=== PATIENT | female | born 1960 | race Caucasian/White ===

== ENCOUNTER 2016-10-05 19:47 | Emergency (ER) | payer OTHER ==
[~2016-10-05] VITALS: Ht 160 cm; Wt 56.9 kg
[~2016-10-05 19:47] MED LIST: ALPR.25 PO; ANAS1 PO; CLON1 PO; COZA50TA PO; LANSO15 PO; LEXA5TAB PO; NEXI20CA PO; POTA-267 PO; ZITH500T PO
[2016-10-05 20:00] VITALS: BP 128/89; PULSE 96; RESP 16; TEMP 98.2; O2SAT 98
[2016-10-05] MEDS ORDERED: CLON1TAB PO (20:13)
[2016-10-05] MEDS ORDERED: NEXI20CA PO (20:13)
[2016-10-05] MEDS ORDERED: LEXA5TAB PO (20:13)
[2016-10-05] MEDS ORDERED: COZA50TA PO (20:13)
--- NOTE | 2016-10-05 20:28 | PD ---
HPI Chief Complaint: Laceration/Skin Injury Time Seen by Provider: 20:14 Travel History International Travel<30 days: No Contact w/Intl Traveler<30days: No Traveled to known affect area: No History of Present Illness HPI 55yo F with PMH of breast CA presents to the ED with c/o left foot laceration. Pt was in fishing yesterday and stepped on a clam at 3pm yesterday and had a laceration. Pt denies any fever, chest pain, sob, n/v, abdominal pain, weakness or numbness. PFSH Past Medical History Blood Disorders: Yes Anxiety: Yes Depression: Yes Cancer: Yes (RIGHT BREAST CA 2005) Chemotherapy: Yes (2005) Diminished Hearing: No GERD: Yes Hypertension: Yes Musculoskeletal: Yes (CERVICAL DISC BULDGING.) Respiratory: Yes (COPD, EMPHAZEMA) Immunizations Current: Yes Radiation Therapy: Yes (2006) ?: Not Menopausal: Yes Tubal Ligation: Yes (1988) Past Surgical History Gynecologic Surgery: Yes (OOPHERECTOMY BIL) Hysterectomy: Yes Mastectomy: Yes (right breast cancer 2005) Thoracic Surgery: Yes (BREAST AUGMENTATION 1994; RIGHT BREAST MASTECTOMY 08/2005 ) Other Surgery: Yes (RT BREAST MASTECTOMY 08/11,LEFT BREAST AUGMENTATION/ RECONSTUCTION 2006 ) Social History Alcohol Use: Yes (DAILY, [id number] drinks) Tobacco Use: Yes (1 TO 1/2 PPD) Substance Use: No Allergies-Medications (Allergen,Severity, Reaction): Coded Allergies: No Known Allergies (Verified , 10/05/16) Reported Meds & Prescriptions Reported Meds & Active Scripts Active Cipro (Ciprofloxacin HCl) 500 Mg Tab 500 Mg PO BID 7 Days Reported Nexium (Esomeprazole DR) 20 Mg Capdr 20 Mg PO DAILY Clonazepam 1 Mg Tab 1 Mg PO BID Lexapro (Escitalopram Oxalate) 5 Mg Tab 5 Mg PO DAILY Cozaar (Losartan Potassium) 50 Mg Tab 50 Mg PO DAILY Review of Systems Except as stated in HPI: all other systems reviewed are Neg Physical Exam Narrative GENERAL: 55yo F not in distress. SKIN: Focused skin assessment warm/dry. CARDIOVASCULAR: Regular rate and rhythm. No murmur appreciated. RESPIRATORY: No accessory muscle use. Clear to auscultation. Breath sounds equal bilaterally. GASTROINTESTINAL: Abdomen soft, non-tender, nondistended. MUSCULOSKELETAL: Left foot: +1.5cm laceration on plantar aspect of 1st MCP. Not bleeding. DP 2+. Sensation intact. Muscle strength intact. NEUROLOGICAL: Awake and alert. No obvious cranial nerve deficits. Motor grossly within normal limits. Normal speech. PSYCHIATRIC: Appropriate mood and affect; insight and judgment normal. Data Data Last Documented VS Vital Signs Date Time Temp Pulse Resp B/P Pulse Ox O2 Delivery O2 Flow Rate FiO2 10/05/16 20:39 98.2 96 16 128/89 98 Orders Acetaminophen (Tylenol) (10/05/16 20:30) [facility] Medical Decision Making Medical Screen Exam Complete: Yes Emergency Medical Condition: Yes Differential Diagnosis Laceration Narrative Course 55yo F presents to the ED 29 hours after sustaining a laceration on bottom of left toe after stepping on a clam. Pt is no longer bleeding and is up to date on tetanus. Wound irrigated well and I was able to see the bottom of the wound and it was superficial. No xray needed as there was no puncture wound. I closed the laceration with steri strips. Pt given acetaminophen. Return precautions given. Procedures Procedure Narrative LACERATION LOCATION: Plantar left 1st metatarsal LENGTH: 1.5 NUMBER OF STITCHES/ДМИТРИЙ: Steri strips REPAIR: TThe wound was copiously irrigated and explored without evidence of foreign body, tendon injury or neurovascular injury. The wound was closed using Steri strips. This was a single layer repair. The patient was advised to keep the dressing clean and dry. Patient tolerated the procedure well. Diagnosis Primary Impression: Laceration of foot Qualified Code: S91.312A - Laceration of foot, left, initial encounter Patient Instructions: General Instructions Departure Forms: Tests/Procedures Additional Instructions: Please follow up with your PMD in 2 days for wound check. Return to the ED if symptoms worsen. Med/Other Pt SpecificInfo: Prescription(s) given Scripts Ciprofloxacin (Cipro)500 Mg Uip129 Mg PO BID 7 Days Ref 0 Prov:CoronaJeanie DO 10/05/16 Disposition: 01 DISCHARGE HOME Condition: Stable Jeanie Corona DO Oct 05, 2016 20:28
[2016-10-05] MEDS ORDERED: ACETAMINOPHEN 325 MG TAB PO ONE (20:30)
[2016-10-05 20:39] VITALS: BP 128/89; PULSE 96; RESP 16; TEMP 98.2; O2SAT 98
[2016-10-05] MEDS ORDERED: CIPR-9 PO (20:44)
== END 2016-10-05 21:03 | disposition home or self-care (01) ==
LOC: PHED 19:47
DX: S91.312A Laceration without foreign body, left foot, initial encounter (principal); I10 Essential (primary) hypertension; F17.210 Nicotine dependence, cigarettes, uncomplicated; F10.10 Alcohol abuse, uncomplicated; W22.09XA Striking against other stationary object, initial encounter; Y93.01 Activity, walking, marching and hiking; Y92.89 Other specified places as the place of occurrence of the external cause
CPT/HCPCS: 99282

== ENCOUNTER 2017-11-14 22:56 | Emergency (ER) | payer OTHER ==
[~2017-11-14 22:56] MED LIST changes: -ALPR.25 PO; -ANAS1 PO; +CIPR-9 PO; -CLON1 PO; +CLON1TAB PO; -LANSO15 PO; -POTA-267 PO; -ZITH500T PO
[2017-11-14 23:06] VITALS: BP 140/92; PULSE 101; RESP 18; TEMP 98.3; O2SAT 96
[2017-11-14] MEDS ORDERED: CEFD300C PO (23:45)
[2017-11-14] MEDS ORDERED: PRED10 PO (23:45)
[2017-11-14] MEDS ORDERED: NICOTINE 14 MG/24 HR PATCH T-DERMAL ONE (23:45)
[2017-11-14] MEDS ORDERED: MELO15TA20 PO (23:45)
--- NOTE | 2017-11-14 23:51 | PD ---
HPI Chief Complaint: Psychiatric Symptoms Time Seen by Provider: 23:40 Travel History International Travel<30 days: No Contact w/Intl Traveler<30days: No Traveled to known affect area: No History of Present Illness HPI This is a 56-year-old female who presents under a Valle act initiated by police department. According to paperwork, "subject ingested 20-30 meloxicam pills. Subjects family attempted to bring her to [facility] and she fled the scene. Subject attempted to flee through [place] before contact with law enforcement." The patient reports that at approximately 6 PM this evening she drank 2 shots of fireball and took 2-3 meloxicam tablets. She denies taking 20 -30 meloxicam pills but she is verbally aggressive and does not appear to be very inclined to be truthful during this examination. She denies any suicidal thoughts or homicidal thoughts. She denies any other ingestions. Her primary complaint at this time is of nicotine withdrawal and she was requesting to smoke a cigarette. I called her Dwayne to obtain additional information. Her reports that they have been for the past 6 months. She called him today saying that she took several Klonopin tablets and several shots of fireball whiskey. He met her and brought her to the hospital however she escaped. He then saw her in a [place] and called police who placed her under Valle act. He reports that there was no Klonopin or Klonopin bottles at home but he believes that she may have taken more than her usual dosage of meloxicam but there is no way that she can estimate how much. He reports that she told him tonight that she wants to try to kill herself when she was a teenager. He also reports that she was diagnosed with COPD 10 days ago and believes that she may have been feeling sad about that. No other complaints at this time. PFSH Past Medical History Blood Disorders: Yes Anxiety: Yes Depression: Yes Cancer: Yes (RIGHT BREAST CA 2005) Chemotherapy: Yes (2005) Diminished Hearing: No GERD: Yes Hypertension: Yes Musculoskeletal: Yes (CERVICAL DISC BULDGING.) Respiratory: Yes (COPD, EMPHAZEMA) Immunizations Current: Yes Radiation Therapy: Yes (2006) Menopausal: Yes Tubal Ligation: Yes (1988) Past Surgical History Gynecologic Surgery: Yes (OOPHERECTOMY BILAT) Hysterectomy: Yes Mastectomy: Yes (right breast cancer 2005) Thoracic Surgery: Yes (BREAST AUGMENTATION 1994; RIGHT BREAST MASTECTOMY 08/2005 ) Other Surgery: Yes (RT BREAST MASTECTOMY 08/11,LEFT BREAST AUGMENTATION/ RECONSTUCTION 2006 ) Social History Alcohol Use: Yes (DAILY, [id number] drinks) Tobacco Use: Yes (1 TO 1/2 PPD) Substance Use: No Allergies-Medications (Allergen,Severity, Reaction): Coded Allergies: No Known Allergies (Verified Adverse Reaction, Unknown, 11/15/17) Reported Meds & Prescriptions Reported Meds & Active Scripts Active Cipro (Ciprofloxacin HCl) 500 Mg Tab 500 Mg PO BID 7 Days Reported Cefdinir 300 Mg Cap 300 Mg PO BID Prednisone 10 Mg Tab 10 Mg PO DAILY Meloxicam 15 Mg Tab 15 Mg PO DAILY Nexium (Esomeprazole DR) 20 Mg Capdr 20 Mg PO DAILY Clonazepam 1 Mg Tab 1 Mg PO BID Lexapro (Escitalopram Oxalate) 5 Mg Tab 5 Mg PO DAILY Cozaar (Losartan Potassium) 50 Mg Tab 50 Mg PO DAILY Review of Systems Except as stated in HPI: all other systems reviewed are Neg Physical Exam Narrative GENERAL: Well-developed well-nourished female who is tearful and verbally abusive. SKIN: Warm and dry. HEAD: Atraumatic. Normocephalic. EYES: Pupils equal and round. No scleral icterus. No injection or drainage. ENT: No nasal bleeding or discharge. Mucous membranes pink and moist. NECK: Trachea midline. No JVD. CARDIOVASCULAR: Regular rate and rhythm. No murmur appreciated. RESPIRATORY: No accessory muscle use. Clear to auscultation. Breath sounds equal bilaterally. GASTROINTESTINAL: Abdomen soft, non-tender, nondistended. Hepatic and splenic margins not palpable. MUSCULOSKELETAL: No obvious deformities. No clubbing. No cyanosis. No edema. NEUROLOGICAL: Awake and alert. No obvious cranial nerve deficits. Motor grossly within normal limits. Normal speech. PSYCHIATRIC: Depressed, tearful, anxious. Data Data Last Documented VS Vital Signs Date Time Temp Pulse Resp B/P (MAP) Pulse Ox O2 Delivery O2 Flow Rate FiO2 11/14/17 23:06 98.3 101 18 140/92 (108) 96 Orders Orders ^ Sitter (11/14/17 23:40) Nicotine 14 Mg Patch.24 Hr (Habitrol 14 (11/14/17 23:45) Complete Blood Count With Diff (11/14/17 23:40) Comprehensive Metabolic Panel (11/14/17 23:40) Thyroid Stimulating Hormone (11/14/17 23:40) Electrocardiogram (11/14/17 23:40) Oximetry (11/14/17 23:40) Ecg Monitoring (11/14/17 23:40) Psych Screen (11/14/17 23:40) Drug Screen, Random Urine (11/14/17 23:40) Alcohol (Ethanol) (11/14/17 23:40) Salicylates (Aspirin) (11/14/17 23:40) Tylenol (Acetaminophen) (11/14/17 23:40) Labs Laboratory Tests Test 11/14/17 23:55 White Blood Count 9.3 TH/MM3 Red Blood Count 5.10 MIL/MM3 Hemoglobin 17.4 GM/DL Hematocrit 49.8 % Mean Corpuscular Volume 97.7 FL Mean Corpuscular Hemoglobin 34.2 PG Mean Corpuscular Hemoglobin Concent 34.9 % Red Cell Distribution Width 13.2 % Platelet Count 232 TH/MM3 Mean Platelet Volume 8.0 FL CBC Comment AUTO DIFF Differential Total Cells Counted 100 Neutrophils % (Manual) 89 % Band Neutrophils % 6 % Lymphocytes % 5 % Neutrophils # (Manual) 8.8 TH/MM3 Differential Comment FINAL DIFF MANUAL Toxic Granulation 2+ Platelet Estimate NORMAL Platelet Morphology Comment NORMAL Blood Urea Nitrogen 11 MG/DL Creatinine 0.86 MG/DL Random Glucose 106 MG/DL Total Protein 7.4 GM/DL Albumin 3.8 GM/DL Calcium Level 9.0 MG/DL Alkaline Phosphatase 141 U/L Aspartate Amino Transf (AST/SGOT) 41 U/L Alanine Aminotransferase (ALT/SGPT) 88 U/L Total Bilirubin 0.5 MG/DL Sodium Level 141 MEQ/L Potassium Level 3.8 MEQ/L Chloride Level 103 MEQ/L Carbon Dioxide Level 26.1 MEQ/L Anion Gap 12 MEQ/L Estimat Glomerular Filtration Rate 68 ML/MIN Thyroid Stimulating Hormone 3rd Gen 0.352 uIU/ML Salicylates Level 4.7 MG/DL Acetaminophen Level LESS THAN 2.0 MCG/ML Ethyl Alcohol Level 166 MG/DL MDM Medical Decision Making Medical Screen Exam Complete: Yes Emergency Medical Condition: Yes Medical Record Reviewed: Yes Differential Diagnosis Major depressive disorder, substance-induced mood disorder, acute psychosis, adjustment reaction Narrative Course 56-year-old female presents under Valle act for psychiatric evaluation. Mental health screening discussed with the patient. Psychiatric screen ordered. Patient was placed on ECG monitoring pulse oximetry. 12 EKG was obtained revealing sinus tachycardia, rate 106, left bundle branch block. CBC reveals hemoglobin of 17.4 otherwise unremarkable, CMP reveals AST 48 ALT 88, TSH 0.352 , Tylenol and salicylates within normal limits, alcohol levels 166. The patient is medically cleared for psychiatric disposition. Diagnosis Primary Impression: Medical clearance for psychiatric admission Oscar Vasquez Nov 14, 2017 23:51
[2017-11-15 00:26] LABS: HEMATOCRIT 49.8 % (35.0-46.0); HEMOGLOBIN 17.4 GM/DL (11.6-15.3); MEAN CELL VOLUME 97.7 FL (80.0-100.0); MEAN CORPUSCULAR HEMOGLOBIN 34.2 PG (27.0-34.0); MEAN CORPUSCULAR HGB CONC 34.9 % (32.0-36.0); PLATELET COUNT 232 TH/MM3 (150-450); RED CELL DISTRIBUTION WIDTH 13.2 % (11.6-17.2); WHITE BLOOD COUNT 9.3 TH/MM3 (4.0-11.0)
[2017-11-15 00:33] LABS: ALBUMIN 3.8 GM/DL (3.4-5.0); ALT (GPT) 88 U/L (10-53); AST (GOT) 41 U/L (15-37); BICARBONATE 26.1 MEQ/L (21.0-32.0); BLOOD UREA NITROGEN 11 MG/DL (7-18); CHLORIDE 103 MEQ/L (98-107); CREATININE 0.86 MG/DL (0.50-1.00); GLOMERULAR FILTRATION RATE 68 ML/MIN (>89); GLUCOSE,RANDOM 106 MG/DL (74-106); SODIUM (NA) 141 MEQ/L (136-145)
[2017-11-15 00:42] LABS: ALKALINE PHOSPHATASE 141 U/L (45-117); TOTAL BILIRUBIN ADULT 0.5 MG/DL (0.2-1.0); TOTAL PROTEIN 7.4 GM/DL (6.4-8.2)
[2017-11-15 00:51] LABS: ACETAMINOPHEN LESS THAN 2.0 MCG/ML (10.0-30.0)
[2017-11-15 01:08] LABS: BANDS 6 % (0-6); LYMPHOCYTES 5 % (9-44); NEUTROPHIL # MANUAL DIFF 8.8 TH/MM3 (1.8-7.7); POLYS (SEG NEUTROPHILS) 89 % (16-70)
[2017-11-15 01:10] LABS: TOXIC GRANULATION 2+ (NORMAL)
[2017-11-15] MEDS ORDERED: ALUMINUM/MAGNESIUM/SIMETH 30 ML CUP PO ONE (03:45)
[2017-11-15] MEDS ORDERED: ONDANSETRON ODT 4 MG TAB PO ONE (03:45)
[2017-11-15] MEDS ORDERED: FAMOTIDINE 20 MG TAB PO ONE (03:45)
[2017-11-15] MEDS ORDERED: LIDOCAINE VISCOUS 2% SOLN 15 ML UDC PO ONE (03:45)
[2017-11-15 05:59] VITALS: BP 125/80; PULSE 85; RESP 16; O2SAT 98
[2017-11-15 12:00] VITALS: BP 156/89; PULSE 78; RESP 18; O2SAT 96
[2017-11-15] MEDS ORDERED: MELOXICAM 15 MG TAB PO ONE (13:30)
[2017-11-15] MEDS ORDERED: predniSONE 10 MG TAB PO SCH (13:30)
[2017-11-15] MEDS ORDERED: ESCITALOPRAM OXALATE 10 MG TAB PO SCH (13:30)
[2017-11-15] MEDS ORDERED: clonazePAM 1 MG TAB PO SCH (13:30)
--- NOTE | 2017-11-15 14:33 | EKG ---
Date Performed: 11/14/2017 Time Performed: 23:58:34 PTAGE: 56 years EKG: SINUS TACHYCARDIA WITH SHORT MN INTERVAL LEFT BUNDLE BRANCH BLOCK ABNORMAL ECG PREVIOUS TRACING : 10/24/2010 10.26 COMPARED WITH PREVIOUS EKG SINUS TACHYCARDIA IS NEW DOCTOR: Rolando Humphrey Interpretating Date/Time 11/15/2017 14:31:36
--- NOTE | 2017-11-15 15:20 | PD ---
Physical Exam Time Seen by Provider: 15:19 Narrative Please refer to previous providers documentation for details surrounding the patient's current visit. Data Data Last Documented VS Vital Signs Date Time Temp Pulse Resp B/P (MAP) Pulse Ox O2 Delivery O2 Flow Rate FiO2 11/15/17 12:00 78 18 156/89 (111) 96 Room Air 11/14/17 23:06 98.3 Orders Orders ^ Sitter (11/14/17 23:40) Nicotine 14 Mg Patch.24 Hr (Habitrol 14 (11/14/17 23:45) Complete Blood Count With Diff (11/14/17 23:40) Comprehensive Metabolic Panel (11/14/17 23:40) Thyroid Stimulating Hormone (11/14/17 23:40) Electrocardiogram (11/14/17 23:40) Oximetry (11/14/17 23:40) Ecg Monitoring (11/14/17 23:40) Psych Screen (11/14/17 23:40) Drug Screen, Random Urine (11/14/17 23:40) Alcohol (Ethanol) (11/14/17 23:40) Salicylates (Aspirin) (11/14/17 23:40) Tylenol (Acetaminophen) (11/14/17 23:40) Famotidine (Pepcid) (11/15/17 03:45) Al-Mag Hy-Si 40-40-4 Mg/Ml Liq (Mag-Al P (11/15/17 03:45) Lidocaine 2% Viscous (Xylocaine 2% Visco (11/15/17 03:45) Ondansetron Odt (Zofran Odt) (11/15/17 03:45) Diet Regular Basic (11/15/17 Breakfast) Diet Regular Basic (11/15/17 Lunch) Meloxicam (Mobic) (11/15/17 13:30) Clonazepam (Klonopin) (11/15/17 13:30) Escitalopram (Lexapro) (11/15/17 13:30) Prednisone (Deltasone) (11/15/17 13:30) Ed Discharge Order (11/15/17 15:18) Labs Laboratory Tests Test 11/14/17 23:55 White Blood Count 9.3 TH/MM3 Red Blood Count 5.10 MIL/MM3 Hemoglobin 17.4 GM/DL Hematocrit 49.8 % Mean Corpuscular Volume 97.7 FL Mean Corpuscular Hemoglobin 34.2 PG Mean Corpuscular Hemoglobin Concent 34.9 % Red Cell Distribution Width 13.2 % Platelet Count 232 TH/MM3 Mean Platelet Volume 8.0 FL CBC Comment AUTO DIFF Differential Total Cells Counted 100 Neutrophils % (Manual) 89 % Band Neutrophils % 6 % Lymphocytes % 5 % Neutrophils # (Manual) 8.8 TH/MM3 Differential Comment FINAL DIFF MANUAL Toxic Granulation 2+ Platelet Estimate NORMAL Platelet Morphology Comment NORMAL Blood Urea Nitrogen 11 MG/DL Creatinine 0.86 MG/DL Random Glucose 106 MG/DL Total Protein 7.4 GM/DL Albumin 3.8 GM/DL Calcium Level 9.0 MG/DL Alkaline Phosphatase 141 U/L Aspartate Amino Transf (AST/SGOT) 41 U/L Alanine Aminotransferase (ALT/SGPT) 88 U/L Total Bilirubin 0.5 MG/DL Sodium Level 141 MEQ/L Potassium Level 3.8 MEQ/L Chloride Level 103 MEQ/L Carbon Dioxide Level 26.1 MEQ/L Anion Gap 12 MEQ/L Estimat Glomerular Filtration Rate 68 ML/MIN Thyroid Stimulating Hormone 3rd Gen 0.352 uIU/ML Salicylates Level 4.7 MG/DL Acetaminophen Level LESS THAN 2.0 MCG/ML Ethyl Alcohol Level 166 MG/DL MDM Medical Record Reviewed: Yes Supervised Visit with SANJUANA: No Narrative Course Patient was medically clear, evaluated by psychiatry and Valle act has been lifted. With no further medical needs, patient will be discharged at this time. Diagnosis Primary Impression: Medical clearance for psychiatric admission Additional Impression: Adjustment disorder Qualified Codes: F43.25 - Adjustment disorder with mixed disturbance of emotions and conduct Disposition: 01 DISCHARGE HOME Condition: Stable Ale Gross Nov 15, 2017 15:20
[2017-11-15 15:30] VITALS: BP 153/71; PULSE 79; RESP 19; O2SAT 97
--- NOTE | 2017-11-15 15:47 | PD ---
History of Present Illness Chief Complaint: Psychiatric Symptoms Time Seen by Provider: 15:00 Travel History International Travel<30 Days: No Contact w/Intl Traveler<30days: No Known affected area: No Legal Status Legal Status: Valle Act Valle Act Signed By: Tamie Magallanes History of Present Illness: Patient is 56 y/o female brought to the Emergency Department under a Valle Act by the [facility] Department. The Valle Act states, " subject ingested 2-30 Meloxicam pills. Subject's family attempted to bring her to [place] and she fled the scene. Subject attempted to flee through a [place] before contact with law enforcement." Patient states that in 2005 she had a right mastectomy due to breast cancer. 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 She states she will be typing and after these periods have not captured what was said. She is very worried that the cancer has spread. She was followed by Dr. Beauchamp through [facility], but her health insurance changed and she is now seeing Dr. Jack . Dr. Jack will not agree to a PET scan and she continues to worry about her health. She thought that if she could be admitted to the ED that a PET scan would be ordered. Chart reviewed and discussed with nurse. Patient in a hospital gown in Room D- 42 in the Emergency Department. Alert and oriented x 4. Fund of knowledge good. Insight and judgement good. Patient states that the vertigo cause her to see white stars, but the are temporary as soon as she stablizes her balance. Attention and concentration is good. Recent and remote recall intact. Endorses no suicidal or homicidal ideations. Patient has been treated most of her life for depression and take Lexapro and an " anxiety pill." She states that her last Oncology appointment was two years ago. Patient advised to follow up with her PCP and determine if she needs further intervention for medical concerns. Patient is at low risk for self harm or harm of others. She endorses no suicidal ideations. She states " I have a good life, I just am worried about the cancer spreading." Will lift the Valle Act. Patient will follow up with her medical physicians. Dx: Adjustment disorder PFSH Past Medical History Blood Disorders: Yes Anxiety: Yes Depression: Yes Cancer: Yes (RIGHT BREAST CA 2005) Cardiovascular Problems: Yes (IRREGULAR HEART RATE) Chemotherapy: Yes (2005) Diminished Hearing: No GERD: Yes Hypertension: Yes Musculoskeletal: Yes (CERVICAL DISC BULDGING) Respiratory: Yes (COPD, EMPHYSEMA) Immunizations Current: Yes Radiation Therapy: Yes (2006) Menopausal: Yes Tubal Ligation: Yes (1988) Past Surgical History Gynecologic Surgery: Yes (OOPHERECTOMY BILAT) Hysterectomy: Yes Mastectomy: Yes (right breast cancer 2005) Thoracic Surgery: Yes (BREAST AUGMENTATION 1994; RIGHT BREAST MASTECTOMY 08/2005 ) Other Surgery: Yes (RT BREAST MASTECTOMY 08/11,LEFT BREAST AUGMENTATION/ RECONSTUCTION 2006 ) Psychiatric History Psychiatric History History of Inpatient Treatment: No Social History Hx Alcohol Use: Yes (DAILY) Hx Tobacco Use: Yes (1 TO 1/2 PPD) Hx Substance Use: Yes (alcohol) Hx of Substance Use Treatment: No Family Psychiatric History Patient has been treated for depression and anxiety most of her life. Allergies-Medications (Allergen,Severity, Reaction): Coded Allergies: No Known Allergies (Verified Allergy, Unknown, 11/15/17) Reported Meds & Prescriptions Reported Meds & Active Scripts Active Cipro (Ciprofloxacin HCl) 500 Mg Tab 500 Mg PO BID 7 Days Reported Cefdinir 300 Mg Cap 300 Mg PO BID Prednisone 10 Mg Tab 10 Mg PO DAILY Meloxicam 15 Mg Tab 15 Mg PO DAILY Nexium (Esomeprazole DR) 20 Mg Capdr 20 Mg PO DAILY Clonazepam 1 Mg Tab 1 Mg PO BID Lexapro (Escitalopram Oxalate) 5 Mg Tab 5 Mg PO DAILY Cozaar (Losartan Potassium) 50 Mg Tab 50 Mg PO DAILY Mental Status Examination Appearance: Appropriate Consciousness: Alert Orientation: x4 Motor Activity: Normal gait Speech: Unremarkable Language: Adequate Fund of Knowledge: Adequate Attention and Concentration: Adequate Memory: Unremarkable Mood: Appropriate Affect: Appropriate Thought Process & Associations: Intact Thought Content: Appropriate Hallucination Type: None Delusion Type: None Suicidal Ideation: No Suicidal Plan: No Suicidal Intention: No Homicidal Ideation: No Homicidal Plan: No Homicidal Intention: No Insight: Adequate Judgment: Adequate MDM Medical Decision Making Medical Record Reviewed: Yes Assessment/Plan Patient is a 56 y/o female who took Meloxicam yesterday out of frustration. Her alcohol level on arrival was 166. She states that she has been pre-occupied with thinking that her cancer has spread . She is unable to get her primary care provider to order a PET scan . She endorses no suicidal ideations today. 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 Her and 6 months ago. She states they have a good relationship, but his has been an additional stressor. Based on the patients presentation and endorsing no suicidal concerns, will lift the Valle Act. Patient is at low risk for self harm or harming others. Patient will follow up with her Primary Care Physician. Orders Orders ^ Sitter (11/14/17 23:40) Nicotine 14 Mg Patch.24 Hr (Habitrol 14 (11/14/17 23:45) Complete Blood Count With Diff (11/14/17 23:40) Comprehensive Metabolic Panel (11/14/17 23:40) Thyroid Stimulating Hormone (11/14/17 23:40) Electrocardiogram (11/14/17 23:40) Oximetry (11/14/17 23:40) Ecg Monitoring (11/14/17 23:40) Psych Screen (11/14/17 23:40) Drug Screen, Random Urine (11/14/17 23:40) Alcohol (Ethanol) (11/14/17 23:40) Salicylates (Aspirin) (11/14/17 23:40) Tylenol (Acetaminophen) (11/14/17 23:40) Famotidine (Pepcid) (11/15/17 03:45) Al-Mag Hy-Si 40-40-4 Mg/Ml Liq (Mag-Al P (11/15/17 03:45) Lidocaine 2% Viscous (Xylocaine 2% Visco (11/15/17 03:45) Ondansetron Odt (Zofran Odt) (11/15/17 03:45) Diet Regular Basic (11/15/17 Breakfast) Diet Regular Basic (11/15/17 Lunch) Meloxicam (Mobic) (11/15/17 13:30) Clonazepam (Klonopin) (11/15/17 13:30) Escitalopram (Lexapro) (11/15/17 13:30) Prednisone (Deltasone) (11/15/17 13:30) Ed Discharge Order (11/15/17 15:18) Results Vital Signs Date Time Temp Pulse Resp B/P (MAP) Pulse Ox O2 Delivery O2 Flow Rate FiO2 11/15/17 12:00 78 18 156/89 (111) 96 Room Air 11/15/17 05:59 85 16 125/80 (95) 98 Room Air 11/14/17 23:06 98.3 101 18 140/92 (108) 96 Laboratory Tests Test 11/14/17 23:55 White Blood Count 9.3 Red Blood Count 5.10 Hemoglobin 17.4 Hematocrit 49.8 Mean Corpuscular Volume 97.7 Mean Corpuscular Hemoglobin 34.2 Mean Corpuscular Hemoglobin Concent 34.9 Red Cell Distribution Width 13.2 Platelet Count 232 Mean Platelet Volume 8.0 CBC Comment AUTO DIFF Differential Total Cells Counted 100 Neutrophils % (Manual) 89 Band Neutrophils % 6 Lymphocytes % 5 Neutrophils # (Manual) 8.8 Differential Comment FINAL DIFF MANUAL Toxic Granulation 2+ Platelet Estimate NORMAL Platelet Morphology Comment NORMAL Blood Urea Nitrogen 11 Creatinine 0.86 Random Glucose 106 Total Protein 7.4 Albumin 3.8 Calcium Level 9.0 Alkaline Phosphatase 141 Aspartate Amino Transf (AST/SGOT) 41 Alanine Aminotransferase (ALT/SGPT) 88 Total Bilirubin 0.5 Sodium Level 141 Potassium Level 3.8 Chloride Level 103 Carbon Dioxide Level 26.1 Anion Gap 12 Estimat Glomerular Filtration Rate 68 Thyroid Stimulating Hormone 3rd Gen 0.352 Salicylates Level 4.7 Acetaminophen Level LESS THAN 2.0 Ethyl Alcohol Level 166 Diagnosis Primary Impression: Adjustment disorder Additional Impression: Alcohol use Disposition: 01 DISCHARGE HOME Condition: Stable Problem Qualifiers Primary Impression: Adjustment disorder Qualified Codes: F43.25 - Adjustment disorder with mixed disturbance of emotions and conduct Betsy Tinsley Nov 15, 2017 15:47
== END 2017-11-15 15:53 | disposition home or self-care (01) ==
LOC: NEPD 22:56
DX: F43.25 Adjustment disorder with mixed disturbance of emotions and conduct (principal); R94.31 Abnormal electrocardiogram [ECG] [EKG]; R55 Syncope and collapse; R42 Dizziness and giddiness; J44.9 Chronic obstructive pulmonary disease, unspecified; F41.8 Other specified anxiety disorders; K21.9 Gastro-esophageal reflux disease without esophagitis; I10 Essential (primary) hypertension; Z85.3 Personal history of malignant neoplasm of breast; F17.210 Nicotine dependence, cigarettes, uncomplicated
CPT/HCPCS: 80053; 80307; 84443; 85007; 85027; 93005; 99284